=== PATIENT | female | born 1965 ===

== ENCOUNTER → 2017-05-14 16:59 | Outpatient (CLI) | payer OTHER ==
[~2017-05-14 16:59] MED LIST: ASA81 MG PO; FAMOTIDINE20 MG PO; LISINOPRIL5 MG PO
== END | disposition home or self-care (01) ==
LOC: RAD 16:59
DX: C18.0 Malignant neoplasm of cecum (principal); R19.5 Other fecal abnormalities; R19.4 Change in bowel habit

== ENCOUNTER 2017-05-15 14:45 | Inpatient (IN) | payer OTHER ==
[~2017-05-15] VITALS: Ht 167.6 cm; Wt 123.4 kg
[2017-05-16] MEDS ORDERED: LISINOPRIL5 MG PO (09:05)
[2017-05-16] MEDS ORDERED: ASA81 MG PO (09:05)
[2017-05-16] MEDS ORDERED: FAMOTIDINE20 MG PO (09:06)
[2017-05-22] MEDS ORDERED: OXYC1TAB9 PO (07:57)
== END 2017-05-22 16:33 | disposition home or self-care (01) | DRG 330 ==
LOC: O/R 05-19 09:59 → SURH 05-19 14:45
PROVIDERS: Surgery
PROC: 07TC4ZZ Resection of Pelvis Lymphatic, Percutaneous Endoscopic Approach (ICD-10-PCS; 2017-05-19)
PROC: 0FB04ZX Excision of Liver, Percutaneous Endoscopic Approach, Diagnostic (ICD-10-PCS; 2017-05-19)
PROC: 0DTF4ZZ Resection of Right Large Intestine, Percutaneous Endoscopic Approach (ICD-10-PCS; principal; 2017-05-19 10:00)
DX: C18.0 Malignant neoplasm of cecum (principal); C78.7 Secondary malignant neoplasm of liver and intrahepatic bile duct; D12.0 Benign neoplasm of cecum; I10 Essential (primary) hypertension; E11.9 Type 2 diabetes mellitus without complications

== ENCOUNTER 2017-06-09 06:26 | Day surgery (SDC) | payer OTHER ==
[~2017-06-09 06:26] MED LIST changes: +OXYC1TAB9 PO
[2017-06-09] MEDS ORDERED: ULTRACET PO (10:06)
== END 2017-06-09 13:30 | disposition home or self-care (01) ==
LOC: CIR.AMB 06:26 → AMB-ENDOS 13:00 → CIR.AMB 13:00
DX: C18.0 Malignant neoplasm of cecum (principal); R19.5 Other fecal abnormalities; C78.7 Secondary malignant neoplasm of liver and intrahepatic bile duct
CPT/HCPCS: 36561; C1751